=== PATIENT | male | born 1950 | race Caucasian/White ===

== ENCOUNTER 2017-01-10 09:10 | Emergency (ER) | payer MEDICARE, OTHER ==
[2017-01-10] MEDS ORDERED: ASPIRIN 81 MG TAB.CHEW PO ONE (09:30)
[2017-01-10] MEDS ORDERED: MECLIZINE HCL 25 MG TABLET PO ONE (09:30)
[2017-01-10] MEDS ORDERED: ASPIRIN 81 MG TAB.CHEW ONE (09:33)
[2017-01-10] MEDS ORDERED: MECLIZINE HCL 25 MG TABLET ONE (09:33)
--- NOTE | 2017-01-10 09:36 | ERNOTE ---
Dizziness ER Record Presenting Symptoms: dizziness, other - while the patient woke with dizziness this morning approximately 5:30 he is also having intermittent chest tightness when he walks the dog at night that's resolved by rest the past month Time Seen by Provider: 01/10/17 09:19 Source: patient Exam Limitations: no limitations Immunizations: IMMUNIZATION HX Immunizations Up to Date Yes History of Influenza Vaccine No Hx Pneumococcal Vaccination Yes Allergies/Adverse Reactions: Allergies Allergy/AdvReac Type Severity Reaction Status Date / Time doxycycline Allergy Intermediate Other Verified 01/10/17 09:20 Home Medications: HOME MEDICATIONS Alprazolam 0.25 mg PO HS 05/12/13 [Last Taken Unknown] Aspirin [[place] Aspirin] 81 mg PO DAILY 05/12/13 [Last Taken Unknown] Atorvastatin Calcium [Lipitor] 40 mg PO HS 05/12/13 [Last Taken Unknown] Mometasone Furoate [Asmanex] 220 mcg IH HS 05/12/13 [Last Taken Unknown] Montelukast Sodium [Singulair] 10 mg PO HS 05/12/13 [Last Taken Unknown] Febuxostat [Uloric] 80 mg PO DAILY 01/10/17 [Last Taken Unknown] Loratadine [Claritin] 10 mg PO DAILY 01/10/17 [Last Taken Unknown] Nitroglycerin [Nitrostat] 0.4 mg SL Q5MIN PRN 01/10/17 [Last Taken Unknown] Polyethylene Glycol 3350 [Miralax] 17 gm PO DAILY 01/10/17 [Last Taken Unknown] Potassium Chloride [Klor-Con 10] 10 meq PO DAILY 01/10/17 [Last Taken Unknown] Venlafaxine HCl [Venlafaxine HCl ER] 150 mg PO DAILY 01/10/17 [Last Taken Unknown] - History of Present Illness Narrative: Patient stated that when he first got up this morning he was dizzy, he does admit having had a history of vertigo however he has never woken up with it before. For the past month he has noticed chest tightness when he is walking the dog that resolves with rest. He does state that the vertigo is very sitting on this juncture. Timing and Duration: sudden onset, better Noted on awakening:: Yes Severity: max: mild Severity: currently: gone Associated Symptoms: Present: none Sense of movement: Present: spinning Decreased ability to stand/walk:: Present: off balance Usually:: Present: walks w/o assistance Modifying Factors - (Improves): Reports: nothing Modifying Factors - (Worsens): Reports: movement of head Review of Systems - Review of Systems Constitutional: Present: See HPI EYE: Present: no symptoms reported ENT: Present: no symptoms reported Respiratory: Present: no symptoms reported Cardiology: Present: no symptoms reported Gastrointestinal/Abdominal: Present: no symptoms reported Genitourinary: Present: no symptoms reported Musculoskeletal: Present: no symptoms reported Skin: Present: no symptoms reported Neurological: Present: no symptoms reported Endocrine: Present: no symptoms reported Hematologic/Lymphatic: Present: no symptoms reported Psych: Present: no symptoms reported - Patient's Past Medical History Patient History - Medical: Other - vertigo Patient History - Cardiac/Respiratory: Coronary Heart Disease, Hypertension, Hyperlipidemia Patient History - Surgical Procedures: Angioplasty - 2 - Social History Smoking Status: Never smoker Have you smoked in the past 12 months: No - Immunizations Immunizations Up to Date: Yes Hx Pneumococcal Vaccination: Yes History of Influenza Vaccine: No Physical Exam - Physical Exam General Appearance: Present: wd/wn, alert, no apparent distress Eye Exam: Normal inspection: bilateral, PERRL: bilateral Ears, Nose, Throat: Present: normal ENT inspection, H, normal pharynx Neck: Present: normal inspection, nontender Respiratory: Present: no respiratory distress, normal breath sounds, no accessory muscle use, chest nontender, lungs clear Cardiovascular/Chest: Present: regular rate, rhythm, no murmur, normal peripheral pulses Gastrointestinal/Abdominal: Present: normal bowel sounds, nontender, nondistended, soft, no organomegaly Rectal Exam: Present: deferred Back Exam: Present: normal inspection, normal range of motion Extremity Exam: Present: normal inspection, non-tender, no edema, normal range of motion Neurological Exam: Present: alert, oriented, normal mood/affect, no motor/ sensory deficits, other - negative HINTS exam Skin Exam: Present: normal color, warm/dry Lymphatic Exam: Present: no adenopathy ED Progress - Results and Orders Patient's Lab Results:: I have reviewed the patient's lab results. - Vital Signs Patient's Vital Signs:: I have reviewed the patient's vital signs. Vital Signs: Vital Signs 01/10/17 09:15 Temperature 36.7 C Pulse Rate 54 L Respiratory 14 Rate Blood Pressure 188/90 O2 Sat by Pulse 99 Oximetry - EKG EKG: NSR - X-Ray X-Ray #1 X-Ray: chest Interpretation: Reviewed by me - CT/Ultrasound CT/Ultrasound Narrative: CT of the head was reviewed by me - Progress/Reassessment Chief Complaint: Dizziness Plan - Plan Plan: Patient appears to have another recurrent episode of his vertigo that had 90% resolved by the time he got here and 100% resolved after a dose of Antivert. Patient however is starting to exhibit some possible anginal symptoms with chest tightness after long walks with his dog. Patient will be set up for an outpatient stress test and he will follow-up with his family physician after the stress test to determine the next step. Departure Clinical Impression: Vertigo Chest pain Qualifiers: Chest pain type: unspecified Qualified Code(s): R07.9 - Chest pain, unspecified - Departure Disposition: Home self-care Condition: Good Instructions: Nonspecific Chest Pain, [id number] Additional Instructions: Keep your cardiac stress test appointment and follow-up with Dr. Lange after the stress test Referrals: Ralf Lange MD [Primary Care Provider] -
[2017-01-10 09:46] LABS: Hematocrit 41.1 % (42.0-52.0); Hemoglobin 13.7 gm/dL (13.5-18.0); Mean Cell Volume 90.7 fl (78-100); Mean Corpuscular Hemoglobin 30.2 pg (27-31); Mean Corpuscular Hgb Conc 33.3 g/dl (32-36); Mean Platelet Volume 9.1 fl (6.0-9.5); Platelet Count 229 K/mm3 (150-450); Red Blood Count 4.53 M/mm3 (4.7-6.0); Red Cell Distribution Width 12.7 % (11.5-14.0); White Blood Count 6.6 K/mm3 (4.0-10.5)
[2017-01-10 10:07] LABS: ALT 14 U/L (19-67); AST 24 U/L (0-48); Albumin * 3.9 gm/dl (3.4-5.0); Alkaline Phosphatase * 61 U/L (50-170); BUN/Creatinine Ratio 22.1 (9.0-21.6); Bilirubin, Total 0.5 mg/dL (0.0-1.1); Blood Urea Nitrogen 19 mg/dL (6-23); Ca. Corrected For Albumin 8.3 mg/dL (8.4-10.2); Calcium * 8.5 mg/dL (7.9-10.9); Carbon Dioxide 31.4 mmol/L (24-32.6); Chloride 106 mmol/L (97-106); Glucose * 92 mg/dL (70-110); Magnesium 1.8 mg/dL (1.2-2.8); Potassium 4.4 mmol/L (3.4-4.6); Sodium 144 mmol/L (132-142); Total Protein 7.1 gm/dL (6.2-8.2)
[2017-01-10 10:08] LABS: Troponin I Less than 0.017 ng/ml (0.00-0.10)
[2017-01-10 10:36] VITALS: BP 163/79
== END 2017-01-10 11:01 | disposition home or self-care (01) ==
LOC: ER 09:10
DX: R42 Dizziness and giddiness (principal); R07.9 Chest pain, unspecified; E78.5 Hyperlipidemia, unspecified; I10 Essential (primary) hypertension; I50.9 Heart failure, unspecified